=== PATIENT | male | born 1980 | race Caucasian/White ===

== ENCOUNTER 2019-02-21 16:28 | Emergency (ER) | payer OTHER ==
[~2019-02-21] VITALS: Ht 170.2 cm; Wt 90.7 kg
[~2019-02-21 16:28] MED LIST: AMITRIPTYLINE; AMITRIPTYLINE H50 M2 GT; AMLODIPINE BESY10 MG PO; ATIVAN1 MG PO; AZITHROMYCIN 2250 MG PO; B-100 COMPLEX1 EAC1; BACTRIM DS TAB1 EACH PO; CLEOCIN HCL150 MG PO; CLONAZEPAM; CLONAZEPAM 1 MG1 M1 NG; CVS VITAMIN C; CYMBALTA60 MG PO; DAZIDOX10 MG; DETROL LA2 MG PO; FENTANYL 1100 MCG/HR TP; FISH OIL 1,0001 EAC9 PO; FLEXERIL PO; GABAPENTIN300 MG PO; GEMFIBROZIL 60600 MG PO; IBUPROFEN 600600 M1 PO; IBUPROFEN 800800 M1 GT; INVEGA SUS234 MG/1.5 IM; INVEGA9 MG PO; KEFLEX250 MG PO; KEFLEX500 MG PO; KLONOPIN1 MG PO; LEVAQUIN 500 M500 M2 PO; LEVOTHYROXIN0.025 MG PG; LEVOTHYROXIN0.025 MG PO; LIORESAL 10 MG10 MG PO; LISINOPRIL10 MG PO; MEDROLDOSEPACK PO; NAPROSYN500 MG PO; NAPROXEN 500MG500 M1 PO; NEURONTIN800 MG PO; NORCO 10-325 T1 EACH PO; NORCO 5-325 TA1 EACH PO; NORCO 7.5-3251 EACH PO; NORFLEX100 MG PO; OXYCONTIN10 M1 PO; PERCOCET 10-321 EACH PO; PERCOCET 5-3251 EACH PO; PHENERGAN 25 MG25 M1 PO; PREDNISONE 20 M20 M1 PO; PRISTIQ100 MG PO; PRISTIQ50 M1 PO; PRISTIQ50 MG; PROAIR HFA8.5 GM IH; PROPRANOLOL 20M20 M1 PO; PROVENTIL HFA6.7 G1 INH; RANITIDINE 150150 MG PO; REQUIP 1 MG TABL1 M1; ROBITUSSIN15 MG/5 ML PO; SAPHRIS5 MG SL; SEROQUEL XR150 MG PO; TESSALON PERLE100 MG PO; TESSALON200 MG PO; TRAMADOL 50 MG50 MG PO; TRAZODONE HCL100 MG; TYLENOL325 MG PO; ULTRAM 50MG TAB50 MG PO; ULTRAM50 MG PO; VALIUM2 MG PO; VALIUM5 MG PO; VENTOLIN HFA 1818 GM INH; VICODIN 5-5001 EACH PO; VITAMIN B 1 PO; VITAMIN B-1100 MG PO; VITAMIN D32000 UNI1; XANAX 0.5 MG0.5 M1 PO; XANAX 0.5 MG0.5 MG PO; XANAX 1 MG TABLE1 MG PO; ZOFRAN 4 MG ORAL4 M1 DIS; ZOFRAN ODT4 MG PO; ZPAK PO
[2019-02-21] MEDS ORDERED: INVEGA SUS234 MG/1.5 IM (16:41)
[2019-02-21] MEDS ORDERED: NEURONTIN600 MG PO (16:42)
[2019-02-21 16:53] LABS: ABSOLUTE NEUTROPHILS 5.7 thou/uL (1.4-8.2); BASOPHILS 0.5 % (0.0-2.0); EOSINOPHILS 1.8 % (0.0-3.0); HEMATOCRIT 38.9 % (42.0-52.0); HEMOGLOBIN 13.5 gm/dL (14.0-18.0); LYMPHOCYTES 25.8 % (24.0-44.0); MCHC 34.6 g/dL (28.0-37.0); MCV 98.1 fL (80.0-100.0); MONOCYTES 6.6 % (1.0-8.0); PLATELET COUNT 293 thou/uL (150-400); POLYS 65.3 % (36.0-66.0); RBC 3.96 mil/uL (4.50-6.00); RDW 13.2 % (10.5-14.5); WBC 8.7 thou/uL (4.0-11.0)
[2019-02-21 17:03] LABS: CALCIUM 9.2 mg/dL (8.5-10.1); CREATININE 1.1 mg/dL (0.7-1.3)
[2019-02-21 17:09] LABS: ALBUMIN 3.9 g/dL (3.4-5.0); TOTAL BILIRUBIN 0.5 mg/dL (<0.1-1.0); TOTAL PROTEIN 7.6 g/dL (6.4-8.2)
[2019-02-21 17:30] LABS: URINE BILIRUBIN NEGATIVE (Negative); URINE BLOOD NEGATIVE (Negative); URINE CLARITY CLEAR; URINE COLOR YELLOW; URINE GLUCOSE-RANDOM* NEGATIVE (Negative); URINE KETONES NEGATIVE (Negative); URINE LEUKOCYTES TRACE (Negative); URINE NITRITE NEGATIVE (Negative); URINE PROTEIN (DIPSTICK) NEGATIVE (Negative)
[2019-02-21 17:44] LABS: AMP/METHAMP Negative (Negative); BARBITURATES Negative (Negative); BENZODIAZEPINES POSITIVE (Negative); COCAINE POSITIVE (Negative); METHADONE Negative (Negative); OPIATES POSITIVE (Negative); PCP Negative (Negative)
[2019-02-21 17:46] LABS: SALICYLATE < 2.8 mg/dL (2.8-20.0)
[2019-02-21 17:47] LABS: APTT 27.1 Seconds (24.5-32.8); D-DIMER 0.56 ug/mLFEU (0.19-0.50); PROTIME 9.4 Seconds (9.3-11.4)
[2019-02-21] MEDS ORDERED: NORCO 5-325 TA1 EAC1 PO (18:03)
[2019-02-21] MEDS ORDERED: ONDANSETRON ODT8 MG PO (18:03)
[2019-02-21] MEDS ORDERED: PROMS25 WY RECTAL (18:10)
[2019-02-21 18:11] VITALS: BP 158/80
--- NOTE | 2019-02-22 09:11 | EKG ---
[place] [address] [facility] [place] [address] ELECTROCARDIOGRAM REPORT Name: GUILLE CASTILLO Room #: DEP [facility]#: [id number] ������������������ Admission: 02/21/19 ������������������ Attend Phys: Discharge: 02/21/19 ������������������ Date of : 82 Report #: [id number] ����������������������������������������������������������������� [id number] THIS REPORT FOR: //name// [facility] ED Test Date: 2019-02-21 Test Time: 16:39:16 Pat Name: GUILLE CASTILLO Department: Room: Gender: M [employer]: ZAG : 1980 Requested By: Quinton Sweeney Order Number: [id number] MD: Loc Portillo Measurements Intervals [place] Rate: 139 P: 23 RI: 139 QRS: -4 QRSD: 84 T: 51 QT: 288 QTc: 438 Interpretive Statements Sinus tachycardia Otherwise no significant abnormality Baseline wander in lead(s) V1 Compared to ECG 11/10/2013 17:27:11 no significant change was found Electronically Signed On 02-22-2019 9:11:34 CDT by Loc Portillo [email or web address] ��������������������������������������������� <ELECTRONICALLY SIGNED> ���������������������������������������� By: Loc Portillo MD, [facility] ��������������������������������������������� 02/22/1910 [id number] Loc Portillo MD, [facility] /EPI
== END 2019-02-21 18:11 | disposition home or self-care (01) ==
LOC: ER 16:28
PROVIDERS: Emergency Medicine; Physician Assistant
DX: F14.10 Cocaine abuse, uncomplicated (principal); F12.90 Cannabis use, unspecified, uncomplicated; R11.2 Nausea with vomiting, unspecified; R19.7 Diarrhea, unspecified; R00.0 Tachycardia, unspecified; F41.9 Anxiety disorder, unspecified; G62.9 Polyneuropathy, unspecified; E78.00 Pure hypercholesterolemia, unspecified; F32.9 Major depressive disorder, single episode, unspecified; R10.9 Unspecified abdominal pain; F17.210 Nicotine dependence, cigarettes, uncomplicated; Z88.1 Allergy status to other antibiotic agents; Z88.0 Allergy status to penicillin

== ENCOUNTER 2021-05-20 12:29 | Emergency (ER) | payer OTHER ==
[~2021-05-20] VITALS: Ht 170.2 cm; Wt 99.8 kg
[~2021-05-20 12:29] MED LIST changes: +NEURONTIN600 MG PO; +NORCO 5-325 TA1 EAC1 PO; +ONDANSETRON ODT8 MG PO; +PROMS25 WY RECTAL
[2021-05-20] MEDS ORDERED: TOPAMAX 25 MG T25 M1 PO (13:09)
[2021-05-20] MEDS ORDERED: NICODERM CQ1 EAC2 TOP (13:10)
[2021-05-20] MEDS ORDERED: NICOTINE GUM2 MG CHEWABLE (13:10)
[2021-05-20] MEDS ORDERED: FLUTICASONE PRO16 GM NASAL (13:11)
[2021-05-20] MEDS ORDERED: MOBIC7.5 MG PO (13:27)
[2021-05-20 14:12] VITALS: BP 121/82
== END 2021-05-20 14:35 | disposition home or self-care (01) ==
LOC: ER 12:29
DX: S16.1XXA Strain of muscle, fascia and tendon at neck level, initial encounter (principal); S29.012A Strain of muscle and tendon of back wall of thorax, initial encounter; G62.9 Polyneuropathy, unspecified; E78.00 Pure hypercholesterolemia, unspecified; M19.90 Unspecified osteoarthritis, unspecified site; F41.9 Anxiety disorder, unspecified; F17.210 Nicotine dependence, cigarettes, uncomplicated; Z79.899 Other long term (current) drug therapy; Z88.0 Allergy status to penicillin; Z88.1 Allergy status to other antibiotic agents; X50.0XXA Overexertion from strenuous movement or load, initial encounter; Y93.89 Activity, other specified; Y92.89 Other specified places as the place of occurrence of the external cause; Y99.8 Other external cause status